=== PATIENT | female | born 1965 | race Caucasian/White ===

== ENCOUNTER 2016-07-09 11:00 | Outpatient (RCR) | payer BC ==
--- NOTE | 2016-05-25 15:08 | PT/OT/ST INITIAL EVALUATION ---
[facility], [facility]. PHYSICAL/OCCUPATIONAL THERAPY [address] [place] [id number] PLAN OF CARE/ASSESSMENT FOR OUTPATIENT REHABILITATION (Complete for Initial Claims Only) 1. PATIENT'S NAME Rachana Sifuentes 2. ACC # [id number] 3. HICN 4. PRIMARY DX M77.11 lateral epicondylitis, right elbow 5. SECONDARY DX 6. TREATMENT DX Weakness, localized edema 7. ONSET DATE February 2016 8. REFERRAL DATE 05/19/2016 9. SOC. DATE 05/21/2016 10. TIME OF EVAL 8:57 a.m. to 9:49 a.m. 11. TOTAL TIME/UNITS 52 minutes 05/25 evaluation ultrasound 05/07 manual therapy 12. G. CODES Not applicable 13. PRIOR LEVEL OF FUNCTION; PERTINENT HISTORY (Prior therapy results, reason for referral.) S: Reason for referral: The patient is a 50-year-old female referred by Katty Hamm PA-C to address occupational concerns secondary to right lateral epicondylitis. Description/mechanism of injury: The patient reports no specific injury, but reports noticing pain around lateral epicondyle area starting in early February and progressively getting worse. Pt saw chiropractor for treatment, but reports no relief in pain or symptoms with treatment. Home set up/adaptive equipment/Prior level of function: The patient lives with her in a one-level home. Prior to onset, the patient was able to complete all daily activities and work tasks with independence. The patient is right handed. Current functional performance and deficits: Since onset, the patient reports difficulty with carrying, squeezing, lifting, pinching and grasping everyday items using right hand including using a curling iron and a vehicle safety inspector for her hair. Pt reports increased pain in right elbow area when attempting to open doors. 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 The patient reports difficulties with sleep secondary to experiencing night time achiness. Pain level and location: The patient reports an achy feeling at rest along lateral epicondyle area and 4-5/10 pain with activity including pinching and gripping with right hand. Aggravating factors: Lifting, squeezing, pinching and carrying items. Relieving factors: Patient reports no relieving factors. Diagnostic tests: None Personal health rating: Good. PMH (PT/OT/Hospitalizations): PMH of seizures approximately 20 years ago. The patient has completed prior physical therapy for hip and knee concerns. Medications: Advil/ibuprofen occasionally, aspirin, meloxicam, Elestrin, Vesicare. No medication to complicate therapy. Patient's goal: To be able to do all activities pain free and decrease swelling. 14. INITIAL ASSESSMENT/SAFETY PRECAUTIONS/MEDICAL COMPLICATIONS (Level of function at start of care. Be specific, use objective measures, list problems.) O: APPEARANCE/OBSERVATION: The patient appeared to her initial occupational therapy evaluation this date. Upon observation, the patient demonstrated some noted edema along lateral epicondyle area of right elbow. With active movements, the patient demonstrated within functional movements in all planes bilateral upper extremities. Noted pt demonstrated increased difficulty and some mild pain with AROM of external rotation, elbow flexion/extension and supination/pronation with RUE. Pt reports pain along supinator muscle and volar side of forearm with active supination at end range. Reports pain at supinator muscle during active wrist extension at end range with right hand. CIRCUMFERENCE/EDEMA: Elbow crease left 29.4 cm, right 29.6 cm. 5 cm from elbow crease right 36.5 cm, left 36.5 cm. ASSESSMENTS: Cylinder Loader strength: right 40 pounds with report of 6-7/10 pain at lateral epicondyle area. Left 50 pounds. 2-point pinch- right 10 pounds with report of 3-4/10 pain, left 10 pounds. 3-point pinch- right 11 pounds, left 11 pounds. Lateral pinch- right 14 pounds, left 10 pounds. SPECIAL TESTING: -Tinel's completed at lateral epicondyle with report of increased pain along area during testing. -Cozens test completed this date with sudden severe pain at lateral epicondyle area, indicating positive results. -Mill's test with report of increased pain during movements, indicating positive results. -Middle finger test completed with patient reporting significant increase in pain along supinator muscle and dorsal forearm, indicating positive results. PALPATION: The patient reports moderate tenderness over lateral epicondyle area and volar side of lateral forearm near the elbow crease. SENSATION: Pt reports mild tingling/numbness sensation occasionally in hand. CONTRAINDICATIONS, PRECAUTIONS AND OBSTACLES TO DELIVERY OF CARE: None INFORMED CONSENT: The OT discussed the OT diagnosis, prognosis, treatment plan, risks and expected outcomes with the patient. The patient agreed to the OT plan of care this date. COMPLEXITY LEVEL: The patient presents with decrease strength, decreased activity tolerance of RUE and difficulties with gripping, pinching, carrying and grasping everyday items and completing daily tasks secondary to increased pain levels. The patient presents with no comorbidities affecting occupational performance and requiring no modifications during assessment, placing patient at a low complexity level. TODAY'S TREATMENT: Included education about occupational therapy and the occupational therapy process. Additionally discussed activity modification techniques to reduce symptoms during daily activity and work tasks. Completed ultrasound 3.0 mHz, 1.5 wcm2, continuous to increase blood circulation and promote healing. Completed soft tissue massage with the use of a tool along lateral epicondyle and extensor wad with noted tightness along area. Educated on use of superficial cold to decrease pain symptoms. Provided patient with UE proximal conditioning exercises for home exercise program. 15. INITIAL POC: (Specify procedures, modalities, short and longterm goals) A: OT DIAGNOSIS: The patient presents with decreased strength, decreased activity tolerance of RUE and increased pain levels secondary to diagnosis of lateral epicondylitis. The patient would benefit from skilled occupational therapy for design and administration of therapeutic activities and exercise to reduce symptoms and improve independence with daily activities and work tasks for return to prior level of function. PROBLEMS/IMPAIRMENT/FUNCTIONAL LOSS: Include decreased ability to grasp, manipulate and carry everyday items using right hand, which impacts the patient's independence with daily activities and work tasks. INTENDED OUTCOMES: Include decrease pain levels, decrease edema, and improve occupational performance of right hand for return to all daily activities and work tasks with independence. Additionally provided education on activity modification techniques to reduce symptoms and prevent increased pain levels. REHAB POTENTIAL/PROGNOSIS: Good based on patient's ability to follow therapist's recommendations and complete home exercise program. PLAN: Plan to treat the patient 1 time a week for initial evaluation followed by 3 times a week for 5 weeks in order to address right lateral epicondylitis. The treatment is to include modalities, ultrasound, iontophoresis, manual therapy, soft tissue mobilization, therapeutic exercise, active range of motion, passive range of motion, therapeutic exercise, ADLs/self-care, patient education/home exercise program and other treatments as indicated. SHORT TERM GOALS X3 WEEKS: 1. The patient will verbalize and demonstrate independence with home exercise program. 2. The patient will demonstrate ability to manipulate 8 out of 10 everyday items/containers using right hand with report of 2 out of 10 pain or less to increase independence with tasks. HALF-WAY GOALS X 5 WEEKS: 1. The patient will report a decrease in QuickDASH score of 15 to 20 points to indicate a meaningful change and increased independence with daily activities and leisure tasks. 2. 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 3. The patient will demonstrate ability to open various everyday doors using right hand independently with report of 0/10 pain. 4. Pt will verbalize and demonstrate carryover with activity modification techniques during daily activities and work tasks and report a reduction in pain and symptoms when styling hair and completing job tasks. 16. PHYSICIAN SIGNATURE ? ON FILE OR ENTER HERE: 17. DATE: I certify the need for these services furnished under this plan of care and if for partial hospitalization. 18. CERTIFICATION FROM THROUGH
[~2016-07-09 11:00] MED LIST: LEVO250T11 PO; WARF6TAB PO
== END 2016-07-27 13:28 | disposition home or self-care (01) ==
LOC: PT 11:00
PROVIDERS: ATTEND Physician Assistant
DX: M77.11 Lateral epicondylitis, right elbow (principal)